=== PATIENT | female | born 1985 | race Caucasian/White ===

== ENCOUNTER → 2016-12-19 | Outpatient (CLI) | payer OTHER ==
--- NOTE | 2016-12-19 10:33 | ECHOF ---
Referral Reason:R00.2 palpitations MEASUREMENTS -------- HEIGHT: 167.6 cm WEIGHT: 72.6 kg BP: 132/86 RVIDd: 2.9 cm (< 3.3) IVSd: 0.9 cm (0.6 - 1.1) LVIDd: 4.2 cm (3.9 - 5.3) LVPWd: 0.9 cm (0.6 - 1.1) IVSs: 1.2 cm LVIDs: 3.1 cm LVPWs: 1.2 cm LA Diam: 3.2 cm (2.7 - 3.8) Ao Diam: 3.0 cm (2.0 - 3.7) MV EXCURSION: 19.132 mm (> 18.000) MV EF SLOPE: 110 mm/s (70 - 150) EPSS: 0.6 cm MV E Jose: 1.01 m/s MV DecT: 209 ms MV A Jose: 0.50 m/s MV E/A Ratio: 2.03 RAP: 5.00 mmHg RVSP: 21.98 mmHg FINDINGS -------- Sinus rhythm. This was a technically good study. The left ventricular size is normal. Left ventricular wall thickness is normal. Overall left ventricular systolic function is normal with, an EF between 60 - 65 %. The right ventricle is normal in size and function. The left atrial size is normal. The right atrium is normal in size. The aortic valve is trileaflet and appears structurally normal. There is trace mitral regurgitation. Mild tricuspid regurgitation present. Right ventricular systolic pressure is normal at < 35 mmHg. The pulmonic valve is normal. The aortic root size is normal. Normal inferior vena cava with normal inspiratory collapse consistent with estimated right atrial pressure of 5 mmHg. The pericardium is normal. CONCLUSIONS -------- 1. Sinus rhythm. 2. There is trace mitral regurgitation. 3. Mild tricuspid regurgitation present. 4. Right ventricular systolic pressure is normal at < 35 mmHg. 5. The pulmonic valve is normal. 6. The aortic root size is normal. 7. Normal inferior vena cava with normal inspiratory collapse consistent with estimated right atrial pressure of 5 mmHg. 8. The pericardium is normal. 9. This was a technically good study. 10. The left ventricular size is normal. 11. Left ventricular wall thickness is normal. 12. Overall left ventricular systolic function is normal with, an EF between 60 - 65 %. 13. The right ventricle is normal in size and function. 14. The left atrial size is normal. 15. The right atrium is normal in size. 16. The aortic valve is trileaflet and appears structurally normal. TEAM LEAD: Karla Maldonado RDCS
== END ==
LOC: RADECHMAIN 08:08
PROVIDERS: ATTEND Internal Medicine Hematology & Oncology
DX: I34.0 Nonrheumatic mitral (valve) insufficiency (principal); I07.1 Rheumatic tricuspid insufficiency
CPT/HCPCS: 93306

== ENCOUNTER 2019-05-26 10:43 | Emergency (ER) | payer OTHER ==
[2019-05-26 10:54] VITALS: BP 131/90; PULSE 75; RESP 16; TEMP 98.1
--- NOTE | 2019-05-26 11:12 | ED ---
Lower Extremity Injury HPI - General Chief Complaint: Extremity Injury, Lower Stated Complaint: Foot injury Time Seen by Provider: 05/26/19 10:58 Source: patient, RN notes reviewed, old records reviewed Mode of arrival: wheelchair Limitations: physical limitation - History of Present Illness Initial Comments: 34-year-old female presents for instructed left foot and ankle pain. Patient reports that she rolled her ankle yesterday when she was walking with [employer] cot the trash. Patient reports she stepped onto a "speed bump". And rolled her ankle. Patient states that she's had no previous ankle or foot fractures. Patient reports pain with ambulation. Patient denies any recent fever, chills, shortness of breath, chest pain, back pain, abdominal pain, nausea vomiting, numbness or tingling, dysuria or hematuria, constipation or diarrhea, headaches or visual changes, or any other current symptoms - Related Data Home Medications Medication Instructions Recorded Confirmed Aspirin EC [Ecotrin Low Dose] 81 mg PO DAILY 05/26/19 05/26/19 Calcium/Magnesium/Zinc 1 tab PO DAILY 05/26/19 05/26/19 [Vkkblmw-Kmziyzeio-Tpbv Tablet] Losartan Potassium 50 mg PO DAILY 05/26/19 05/26/19 Previous Rx's Medication Instructions Recorded Ibuprofen 600 mg PO TID #30 tablet 05/26/19 Allergies Allergy/AdvReac Type Severity Reaction Status Date / Time amoxicillin Allergy Unknown Verified 05/26/19 11:03 Childhood Penicillins Allergy Unknown Verified 05/26/19 11:03 Childhood Review of Systems ROS Statement: Those systems with pertinent positive or pertinent negative responses have been documented in the HPI. ROS Other: All systems not noted in ROS Statement are negative. Past Medical History Past Medical History: Hypertension History of Any Multi-Drug Resistant Organisms: None Reported Past Surgical History: Section Past Psychological History: No Psychological Hx Reported Smoking Status: Current every day smoker Past Alcohol Use History: None Reported Past Drug Use History: Marijuana General Exam - General Exam Comments Initial Comments: 34-year-old female. Alert and oriented. No distress. Limitations: physical limitation General appearance: alert, in no apparent distress Head exam: Present: atraumatic, normocephalic, normal inspection Eye exam: Present: normal appearance, PERRL, EOMI. Absent: scleral icterus, conjunctival injection, periorbital swelling ENT exam: Present: normal exam, mucous membranes moist Neck exam: Present: normal inspection. Absent: tenderness, meningismus, lymphadenopathy Respiratory exam: Present: normal lung sounds bilaterally. Absent: respiratory distress, wheezes, rales, rhonchi, stridor Cardiovascular Exam: Present: regular rate, normal rhythm, normal heart sounds. Absent: systolic murmur, diastolic murmur, rubs, gallop, clicks GI/Abdominal exam: Present: soft, normal bowel sounds. Absent: distended, ten derness, guarding, rebound, rigid Extremities exam: Present: normal inspection, full ROM, normal capillary refill. Absent: tenderness, pedal edema, joint swelling, calf tenderness Left Ankle exam: Present: full ROM, tenderness (Over lateral malleolus.), swelling. Absent: normal inspection Foot/Toe exam: Present: normal inspection, full ROM Neurovascular tendon exam: Present: no vascular compromise Gait: observed and limited by pain Back exam: Present: normal inspection Neurological exam: Present: alert, oriented X3, CN II-XII intact Psychiatric exam: Present: normal affect, normal mood Skin exam: Present: warm, dry, intact, normal color. Absent: rash Course Vital Signs 05/26/19 10:52 Temperature 98.1 F Pulse Rate 75 Respiratory 16 Rate Blood Pressure 131/90 O2 Sat by Pulse 100 Oximetry Procedures - Orthopedic Splinting/Casting Injury #1 Side: left Upper Extremity Immobilizer: Yosef wrap Lower Extremity Injury Location: ankle, foot Medical Decision Making - Medical Decision Making 34-year-old female presents 1 day after rolling her left ankle and foot. Patient reports that she has some tenderness and swelling over the lateral ankle. She does have full range of motion, and capillary refills less than 2 seconds and sensation is normal distally in her toes. I she is a foot and ankle are completed. This was negative for any acute process. Recommended repeat imaging in 7 days if symptoms persist. Discussed likely significance sprain. Patient is given an Yosef wrap, and ankle stirrup splint Aircast. He shouldn't was advised to follow-up with orthopedic if symptoms continue persist. Over the Patient for crutches well for an ankle sprain. Discussed the importance of rest ice elevate. Discussed return parameters. - Radiology Data Radiology results: report reviewed Normal 3 view left foot. Follow-up exam can be performed in 7-10 days from acute trauma or continue pain. Mild soft tissue prominence of the lateral ankle. Follow-up exam can be performed in 7-10 days from acute chronic trauma for continued pain. Disposition Clinical Impression: Ankle sprain Disposition: HOME SELF-CARE Condition: Good Instructions (If sedation given, give patient instructions): Ankle Sprain (ED) Additional Instructions: Please use medication as discussed. Patient's also follow-up with your orthopedic physical therapist. Musculoskeletal ice, and elevate the ankle and foot. Were the Yosef wrap. Ambulate with crutches. Please return to the emergency room if your symptoms increase or worsen or for any other concerns. Prescriptions: Ibuprofen 600 mg PO TID #30 tablet Is patient prescribed a controlled substance at d/c from ED?: No Referrals: Ghanshyam Goldberg MD [Primary Care Provider] - 1-2 days Zak Stringer MD [STAFF PHYSICIAN] - 1-2 days
--- NOTE | 2019-05-26 11:34 | XR ---
EXAMINATION TYPE: XR foot complete LT DATE OF EXAM: 05/26/2019 COMPARISON: None HISTORY: Lateral heel pain TECHNIQUE: Three-view left foot FINDINGS: No acute fractures or dislocations are evident. Soft tissues are normal. Joint spaces are p reserved. IMPRESSION: 1. Normal three-view left foot. 2. Follow-up exams can be performed 7-10 days from acute trauma for continued pain.
--- NOTE | 2019-05-26 11:35 | XR ---
EXAMINATION TYPE: XR ankle complete LT DATE OF EXAM: 05/26/2019 COMPARISON: None HISTORY: Rolled ankle left ankle and foot pain TECHNIQUE: Three-view left ankle FINDINGS: Mild soft tissue prominence over the lateral malleolus. Ankle mortise is intact. No acute f ractures or dislocations are evident. IMPRESSION: 1. Mild soft tissue prominence lateral ankle. 2. Follow-up exams can be performed 7-10 days from acute trauma for continued pain.
== END 2019-05-26 12:04 | disposition home or self-care (01) ==
LOC: EC 10:43
DX: S93.402A Sprain of unspecified ligament of left ankle, initial encounter (principal); I10 Essential (primary) hypertension; F17.200 Nicotine dependence, unspecified, uncomplicated; Z79.82 Long term (current) use of aspirin; Z79.899 Other long term (current) drug therapy; Z88.0 Allergy status to penicillin; X50.1XXA Overexertion from prolonged static or awkward postures, initial encounter; Y93.01 Activity, walking, marching and hiking
CPT/HCPCS: 73610; 73630; 99284; L4350

== ENCOUNTER → 2020-08-30 | Outpatient (CLI) | payer OTHER ==
[2020-08-30 12:57] VITALS: BP 123/86; PULSE 78; RESP 18; TEMP 98.1
--- NOTE | 2020-08-30 13:38 | P.HPOB ---
History of Present Illness H&P Date: 08/30/20 Chief Complaint: The patient is here for her routine gynecologic exam. This is a 35-year-old with an LMP of 08/20/2020. She has been experiencing some right breast discomfort over the past 3 months. She states it has been variable and intermittent. The location can vary and she is not feeling any strange lumps. She describes it as occasionally sore, achy or occasionally sharp. Currently she is not experiencing any pain at this moment. She denies nipple discharge. She does drink a fair amount of caffeine but is trying to cut back on this. She was previously told she has fibrocystic changes of the breast. She has been using withdrawal for control. She states her partner is planning to get a vasectomy and does have a urologist, Dr. Major. Review of Systems She has lost about 16 pounds over the past 3 years. She denies respiratory, cardiac, or GI problems. Past Medical History Past Medical History: Hypertension Additional Past Medical History / Comment(s): Polycythemia. 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 History of Any Multi-Drug Resistant Organisms: None Reported Past Surgical History: Section Additional Past Surgical History / Comment(s): section 2. Past Psychological History: No Psychological Hx Reported Smoking Status: Former smoker Past Alcohol Use History: Rare (3 per year) Additional Past Alcohol Use History / Comment(s): She quit smoking cigarettes in 2009. Past Drug Use History: Marijuana (About 2 times per month.) Additional History: She is and has been with her boyfriend since 2008 and lives with him. She does not work outside of the home. - Past Family History Mother Family Medical History: No Reported History Additional Family Medical History / Comment(s): A maternal cousin had breast cancer. She is uncertain of the age when she developed breast cancer. An aunt had pancreatic cancer. Grandfather had lymphoma. Father Family Medical History: Hypertension Brother(s) Family Medical History: Hypertension Medications and Allergies Home Medications Medication Instructions Recorded Confirmed Type Aspirin EC [Ecotrin Low Dose] 81 mg PO DAILY 05/26/19 08/30/20 History Calcium/Magnesium/Zinc 1 tab PO DAILY 05/26/19 08/30/20 History [Bujrptb-Zqdhkjuoe-Mvka Tablet] Ibuprofen 600 mg PO TID #30 tablet 05/26/19 08/30/20 Rx Losartan Potassium 50 mg PO DAILY 05/26/19 08/30/20 History Aspirin/Acetaminophen/Caffeine 1 each PO DAILY PRN 08/30/20 08/30/20 History [Excedrin Migraine Caplet] Cholecalciferol [Vitamin D3 (25 2,000 unit PO DAILY 08/30/20 08/30/20 History Mcg = 1000 Iu)] Allergies Allergy/AdvReac Type Severity Reaction Status Date / Time amoxicillin Allergy Unknown Verified 08/30/20 12:49 Childhood Penicillins Allergy Unknown Verified 08/30/20 12:49 Childhood Exam Vital Signs Temp Pulse Resp BP Pulse Ox 08/30/20 12:50 98.1 F 78 18 123/86 99 Intake and Output 08/29/20 08/30/20 08/30/20 22:59 06:59 14:59 Other: Weight 70.76 kg Height 5 feet 4 inches, weight 156 pounds, BMI 26.8. This is a well-developed well-nourished white female who is alert and oriented times 3 in no acute distress. HEENT: Within normal limits. NECK: Supple without mass or thyromegaly. CHEST AND LUNGS: Clear to auscultation. HEART: Regular rate and rhythm. BREASTS: Are without mass or discharge. Breasts are nontender. She denies any breast pain at this time but has been experiencing some discomfort on and off over the past 3 months. AXILLARY EXAM: Negative for adenopathy. BACK: Negative for CVA tenderness. ABDOMEN: Soft, nontender, without palpable masses. PELVIC EXAM: Normal external genitalia. Cervix and vagina appear normal. There is no unusual discharge. There is no evidence of prolapse. The uterus is midposition, nongravid size and nontender. There are no palpable adnexal masses or tenderness. RECTAL EXAM: Rectal exam was refused by the patient. EXTREMITIES: Nontender. IMPRESSION: 1. 35-year-old perimenopausal female with normal gynecologic exam. 2. Intermittent right breast mastodynia currently without pain at this time and without any significant physical findings. Probable fibrocystic changes of the breast. PLAN: 1. Pap smear cotest was performed. 2. Self breast awareness was discussed with the patient. The patient will call if she is having worsening breast symptoms or if this is more localized in one particular position. I have also recommended that she decrease caffeine intake. She continues [id number] ibuprofen as directed as needed. 3. Osteoporosis prevention was discussed. I have stressed the importance of adequate calcium, vitamin D and regular exercise. Recommended amounts of calcium and vitamin D were also discussed. 4. We have discussed control options. She is declining any control at this time and states her partner plans on getting a vasectomy. 5. She was advised to return in one year for her annual well woman exam and as needed.
--- NOTE | 2020-09-06 09:39 | P.PN ---
Progress Note - Text Progress Note Date: 09/06/20 OUTPATIENT FOLLOW-UP NOTE TEST(S)/RESULTS: Test results from 08/30/2020 include Pap smear showing ASCUS with negative high risk HPV testing. METHOD OF NOTIFICATION: Patient was notified by phone. PATIENT COMMENTS: The patient had a previous abnormal Pap smear many years ago where the Pap smear was repeated and nothing more needed to be done. DIAGNOSIS: ASCUS Pap smear with negative high-risk HPV testing. DISCUSSION: The ASCCP guidelines show a 0.4% 5 year risk for DESMOND-3 or greater. Colposcopy is not indicated at this time. PLAN: Repeat Pap smear cotest in 2-3 years. She was advised to return in one year for her annual well woman exam.
== END | disposition home or self-care (01) ==
LOC: WWCWWP 12:35
PROVIDERS: ATTEND Obstetrics & Gynecology
DX: Z53.9 Procedure and treatment not carried out, unspecified reason (principal)

== ENCOUNTER 2020-09-23 22:35 | Emergency (ER) | payer OTHER ==
[2020-09-23 22:39] VITALS: BP 170/97; PULSE 82; RESP 18; TEMP 98.5
--- NOTE | 2020-09-23 23:04 | ED ---
Recheck HPI - General Chief Complaint: Recheck/Abnormal Lab/Rx Stated Complaint: High BP Time Seen by Provider: 09/23/20 22:48 Source: patient Mode of arrival: ambulatory Limitations: no limitations - History of Present Illness Initial Comments: 35-year-old female patient presents to the emergency department today for evaluation of elevated blood pressures. Patient states she does have a history of hypertension. She does take medication for this and her dosage was increased in June or July. Patient states she started monitoring her blood p ressure recently and noticed an elevated level yesterday. States she checked it several times throughout the day today and did blood pressure Rising higher and higher. States she did have a mild headache earlier in the day which did resolve. She denies any current headache, blurred vision, or double vision. Denies any dizziness or weakness. Denies any chest pain or shortness of breath. States she is otherwise healthy and having no other symptoms. Patient denies any recent rash, fever, chills, cough, shortness of breath, chest pain, abdominal pain, nausea, vomiting, diarrhea, constipation, back pain, numbness, tingling, hematuria, dysuria, urinary urgency, urinary frequency, or any other complaints. - Related Data Home Medications Medication Instructions Recorded Confirmed Aspirin EC [Ecotrin Low Dose] 81 mg PO DAILY 05/26/19 08/30/20 Calcium/Magnesium/Zinc 1 tab PO DAILY 05/26/19 08/30/20 [Gbhqurt-Jlfqmabie-Ohsn Tablet] Losartan Potassium 50 mg PO DAILY 05/26/19 08/30/20 Aspirin/Acetaminophen/Caffeine 1 each PO DAILY PRN 08/30/20 08/30/20 [Excedrin Migraine Caplet] Cholecalciferol [Vitamin D3 (25 2,000 unit PO DAILY 08/30/20 08/30/20 Mcg = 1000 Iu)] Previous Rx's Medication Instructions Recorded Ibuprofen 600 mg PO TID #30 tablet 05/26/19 Allergies Allergy/AdvReac Type Severity Reaction Status Date / Time amoxicillin Allergy Unknown Verified 09/23/20 22:39 Childhood Penicillins Allergy Unknown Verified 09/23/20 22:39 Childhood Review of Systems ROS Statement: Those systems with pertinent positive or pertinent negative responses have been documented in the HPI. ROS Other: All systems not noted in ROS Statement are negative. Past Medical History Past Medical History: Hypertension Additional Past Medical History / Comment(s): Polycythemia. 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 History of Any Multi-Drug Resistant Organisms: None Reported Past Surgical History: Section Additional Past Surgical History / Comment(s): section 2. Past Psychological History: No Psychological Hx Reported Smoking Status: Former smoker Past Alcohol Use History: Rare Past Drug Use History: Marijuana - Past Family History Mother Family Medical History: No Reported History Additional Family Medical History / Comment(s): A maternal cousin had breast cancer. She is uncertain of the age when she developed breast cancer. An aunt had pancreatic cancer. Grandfather had lymphoma. Father Family Medical History: Hypertension Brother(s) Family Medical History: Hypertension General Exam Limitations: no limitations General appearance: alert, in no apparent distress, other (This is a well- developed, well-nourished adult female patient in no acute distress. Vital signs upon presentation are temperature 98.5F, pulse 82, respirations 18, blood pressure 170/97, pulse ox 100% on room air.) Respiratory exam: Present: normal lung sounds bilaterally. Absent: respiratory distress, wheezes, rales, rhonchi, stridor Cardiovascular Exam: Present: regular rate, normal rhythm, normal heart sounds. Absent: systolic murmur, diastolic murmur, rubs, gallop, clicks GI/Abdominal exam: Present: soft, normal bowel sounds. Absent: distended, tenderness, guarding, rebound, rigid Neurological exam: Present: alert, oriented X3, CN II-XII intact Psychiatric exam: Present: normal affect, normal mood Skin exam: Present: warm, dry, intact, normal color. Absent: rash Course Vital Signs 09/23/20 22:37 Temperature 98.5 F Pulse Rate 82 Respiratory 18 Rate Blood Pressure 170/97 O2 Sat by Pulse 100 Oximetry Medical Decision Making - EKG Data -: EKG Interpreted by Me EKG Comments: EKG obtained at 2248 shows normal sinus rhythm with a ventricular rate of 75, AZ interval 146, QRS duration 88, QT 398, QTC 444. Disposition Clinical Impression: Hypertension Disposition: HOME SELF-CARE Condition: Good Instructions (If sedation given, give patient instructions): Hypertension (ED) Additional Instructions: Monitor blood pressures once daily at different times for your physician. Follow up with your doctor for further evaluation as soon as possible. Return to the emergency department for any new, worsening, or concerning symptoms. Is patient prescribed a controlled substance at d/c from ED?: No Referrals: Ghanshyam Goldberg MD [Primary Care Provider] - 1-2 days Time of Disposition: 23:04
== END 2020-09-23 23:13 | disposition home or self-care (01) ==
LOC: EC 22:35
DX: I10 Essential (primary) hypertension (principal); Z79.82 Long term (current) use of aspirin; Z79.899 Other long term (current) drug therapy; Z88.0 Allergy status to penicillin; Z87.891 Personal history of nicotine dependence
CPT/HCPCS: 93005; 99283

== ENCOUNTER 2022-03-01 10:21 | Emergency (ER) | payer OTHER ==
[2022-03-01 10:28] VITALS: BP 147/94; PULSE 67; RESP 18; TEMP 98
--- NOTE | 2022-03-01 11:06 | XR ---
EXAMINATION TYPE: XR chest 2V DATE OF EXAM: 03/01/2022 COMPARISON: NONE HISTORY: Chest pain TECHNIQUE: Frontal and lateral views of the chest are obtained. FINDINGS: There is no focal air space opacity. No evidence for pneumothorax. No pleural effusion. The cardiac silhouette size is within normal limits. The osseous structures are grossly intact. IMPRESSION: 1. No acute cardiopulmonary process.
--- NOTE | 2022-03-01 11:59 | ED ---
URI HPI - General Chief Complaint: Upper Respiratory Infection Stated Complaint: cough Time Seen by Provider: 03/01/22 10:39 Source: patient, RN notes reviewed Mode of arrival: ambulatory Limitations: no limitations - History of Present Illness Initial Comments: 36-year-old female presents emergency from chief complaint cough and cold like symptoms 7-8 days. Patient states she has no fevers or chills of recent. Patient states that she has nasal congestion, cough minimal shortness of breath no chest pain no abdominal issues. Patient states that no sick contacts. Patient states symptoms are just not improving. No significant past medical history. - Related Data Home Medications Medication Instructions Recorded Confirmed Aspirin EC [Ecotrin Low Dose] 81 mg PO DAILY 05/26/19 08/30/20 Calcium/Magnesium/Zinc 1 tab PO DAILY 05/26/19 08/30/20 [Ucmtapp-Sazjynugu-Mszb Tablet] Losartan Potassium 50 mg PO DAILY 05/26/19 08/30/20 Aspirin/Acetaminophen/Caffeine 1 each PO DAILY PRN 08/30/20 08/30/20 [Excedrin Migraine Caplet] Cholecalciferol [Vitamin D3 (25 2,000 unit PO DAILY 08/30/20 08/30/20 Mcg = 1000 Iu)] Previous Rx's Medication Instructions Recorded Ibuprofen 600 mg PO TID #30 tablet 05/26/19 dexAMETHasone [Decadron] 6 mg PO DAILY #5 tablet 03/01/22 Allergies Allergy/AdvReac Type Severity Reaction Status Date / Time amoxicillin Allergy Unknown Verified 03/01/22 10:28 Childhood Penicillins Allergy Unknown Verified 03/01/22 10:28 Childhood Review of Systems ROS Statement: Those systems with pertinent positive or pertinent negative responses have been documented in the HPI. ROS Other: All systems not noted in ROS Statement are negative. Past Medical History Past Medical History: Hypertension Additional Past Medical History / Comment(s): Polycythemia. History of Any Multi-Drug Resistant Organisms: None Reported Past Surgical History: Section Additional Past Surgical History / Comment(s): section 2. Past Psychological History: No Psychological Hx Reported Smoking Status: Former smoker Past Alcohol Use History: Rare Past Drug Use History: Marijuana - Past Family History Mother Family Medical History: No Reported History Additional Family Medical History / Comment(s): A maternal cousin had breast cancer. She is uncertain of the age when she developed breast cancer. An aunt had pancreatic cancer. Grandfather had lymphoma. Father Family Medical History: Hypertension Brother(s) Family Medical History: Hypertension General Exam Limitations: no limitations General appearance: alert, in no apparent distress Head exam: Present: atraumatic, normocephalic, normal inspection Eye exam: Present: normal appearance, PERRL, EOMI. Absent: scleral icterus, conjunctival injection, periorbital swelling ENT exam: Present: normal exam, normal oropharynx, mucous membranes moist Neck exam: Present: normal inspection, full ROM. Absent: tenderness, meningismus, lymphadenopathy Respiratory exam: Present: normal lung sounds bilaterally. Absent: respiratory distress, wheezes, rales, rhonchi, stridor Cardiovascular Exam: Present: regular rate, normal rhythm, normal heart sounds. Absent: systolic murmur, diastolic murmur, rubs, gallop, clicks Course Vital Signs 03/01/22 10:24 Temperature 98.0 F Pulse Rate 67 Respiratory 18 Rate Blood Pressure 147/94 O2 Sat by Pulse 99 Oximetry Medical Decision Making - Medical Decision Making X-ray is negative, influenza AMB are negative, patient has positive occult 19. Symptoms have been present for 8 days. She does not qualify for monoclonal antibodies. Patient vitals are stable be discharged in stable condition return parameters discussed. - Lab Data Lab Results 03/01/22 03/01/22 Range/Units 10:25 10:25 Coronavirus (PCR) Detected A (Not Detectd) Influenza Type A RNA Not Detected (Not Detectd) Influenza Type B (PCR) Not Detected (Not Detectd) Disposition Clinical Impression: COVID-19 Disposition: HOME SELF-CARE Condition: Stable Instructions (If sedation given, give patient instructions): COVID-19 (Coronavirus Disease 2019) (ED) Additional Instructions: Please return to the Emergency Department if symptoms worsen or any other concerns. Prescriptions: dexAMETHasone [Decadron] 6 mg PO DAILY #5 tablet Is patient prescribed a controlled substance at d/c from ED?: No Referrals: Ghanshyam Goldberg MD [Primary Care Provider] - 1-2 days Time of Disposition: 11:59
== END 2022-03-01 12:07 | disposition home or self-care (01) ==
LOC: EC 10:21
DX: U07.1 COVID-19 (principal); I10 Essential (primary) hypertension; Z87.891 Personal history of nicotine dependence; Z88.0 Allergy status to penicillin
CPT/HCPCS: 71046; 87502; 87635

== ENCOUNTER → 2023-06-24 | Outpatient (CLI) | payer OTHER ==
--- NOTE | 2023-06-25 13:51 | MR ---
EXAMINATION TYPE: MR cspine/tspine/lspine wo con DATE OF EXAM: 06/24/2023 10:28 PM CLINICAL INDICATION:Female, 38 years old with history of M54.9 DORSALGIA, UNSPECIFIED; PHH, Headaches , neck pain, mid back pain, low back pain. COMPARISON: TECHNIQUE: Multi planar, multi sequence imaging was performed utilizing: T1-weighted, T2-weighted, a nd turbo inversion recovery imaging of the cervical and lumbar spine. MR contrast: IV Contrast: None. FINDINGS: CERVICAL: Alignment: The cervical vertebral bodies have preserved heights. Alignment is within normal limits gi kush patient positioning. Bones: Bone signal is within normal limits. No abnormal bone marrow edema on inversion recovery seque nces. Cord: The spinal cord is unremarkable with regards to their signal intensity and morphology. Discs: Intervertebral disc signal is maintained. C2-C3: No significant disc pathology. The spinal canal is patent. No neural foraminal stenosis. Ther e is a tortuous vessel that enters the left neural foramen and likely abuts the exiting nerve. C3-C4: No significant disc pathology. The spinal canal is patent. No neural foraminal stenosis. C4-C5: No significant disc pathology. The spinal canal is patent. No neural foraminal stenosis. C5-C6: No significant disc pathology. The spinal canal is patent. No neural foraminal stenosis. C6-C7: No significant disc pathology. The spinal canal is patent. No neural foraminal stenosis. C7-T1: No significant disc pathology. The spinal canal is patent. No neural foraminal stenosis. Other: None. THORACIC: No evidence significant spinal canal or neural foraminal stenosis. Spinal cord is within no rmal limits. No abnormal bony edema. LUMBAR: Alignment: The lumbar vertebral bodies have preserved heights and alignment. Cord: The conus medullaris and the distal spinal cord appear unremarkable with regards to their signa l intensity and morphology. Bones/Discs: Bone signal is within normal limits. Mild degeneration changes with osteophyte formation . Modic endplate changes superior endplate of L4 anteriorly. No abnormal bony edema on inversion renetta very sequences. Mild disc desiccation present. T12-L1: No evidence of significant spinal canal stenosis or neural foraminal stenosis. L1-L2: No evidence of significant spinal canal stenosis or neural foraminal stenosis. L2-L3: No evidence of significant spinal canal stenosis or neural foraminal stenosis. L3-L4: No evidence of significant spinal canal stenosis or neural foraminal stenosis. L4-L5: No evidence of significant spinal canal stenosis or neural foraminal stenosis. L5-S1: The disc is rounded posterior morphology without significant spinal canal stenosis. Facet join t arthropathy with mild neural foraminal stenosis. Other findings: None. IMPRESSION: Cervical: * Tortuous vessel at the level of C2-C3 left neural foramen which likely abuts the exiting nerve. * No additional evidence of cervical spinal or high-grade neural foraminal stenosis. Spinal cord sig nal is maintained. Thoracic: * No evidence of significant spinal canal or neural foraminal stenosis. Spinal cord signal is mainta ined. Lumbar: * No evidence of significant spinal canal or neural foraminal stenosis. Spinal cord signal is mainta ined.
== END | disposition home or self-care (01) ==
LOC: RADMRIMAIN 20:49
PROVIDERS: ATTEND Family Medicine
DX: M54.50 Low back pain, unspecified (principal); M54.2 Cervicalgia; M54.6 Pain in thoracic spine
CPT/HCPCS: 72141; 72146; 72148